=== PATIENT | male | born 2000 | race African-American/Black ===

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

== ENCOUNTER 2019-12-23 08:18 | Emergency (ER) | payer SELFPAY ==
[2019-12-23] MEDS ORDERED: ACETAMINOPHEN 325 MG TAB PO ONE (08:28)
--- NOTE | 2019-12-23 08:37 | Emergency Department Record ---
History of Present Illness - General Chief Complaint: Headache Migraine Stated Complaint: HEADACHE Time Seen by Provider: 12/23/19 08:27 Source: Patient Mode of Arrival: Ambulatory Limitations: No limitations - History of Present Illness Initial Comments: The patient is here due to developing a headache 5 days ago. The pain is mild and over the R side of the back of the head mainly and the onset was gradual. It does wax and wane and is very mild at this time. There has been no visual changes, fever, chills, nausea, vomiting, trauma, neck pain or balance issues. The patient states he has had mild eye strain type of symptoms recently. Due to not having any hx of head pain issues his mother felt he needed to get checked out in the ER. MD Complaint: Headache Onset/Timin -: Days(s) Onset Description: Gradual Location: Occipital Severity: Mild Severity scale (1-10): 3 Quality: Aching Consistency: Intermittent Improves With: Nothing Worsens With: None Context: Other Treatments Prior to Arrival: Acetaminophen Treatment Prior to Arrival Comment:: Tylenol at 0200 - Related Data Home Medications Medication Instructions Recorded Confirmed Last Taken No Home Med [NO HOME MEDS] 12/23/19 12/23/19 Unknown Allergies Allergy/AdvReac Type Severity Reaction Status Date / Time No Known Drug Allergies Allergy Verified 12/23/19 08:27 Travel/Exposure Screening - Travel/Exposure Within Last 30 Days Have you traveled within the last 30 days?: No - Additonal Travel/Exposure Details Have you been exposed to anyone with a communicable illness?: No Review of Systems Constitutional: Denies: Chills, Fever Eyes: Denies: Eye discharge ENT: Denies: Congestion Respiratory: Denies: Cough, Dyspnea Past Medical History - SOCIAL HISTORY Smoking Status: Never smoker Drug Use Detail:: Marijuana - RESPIRATORY Hx Respiratory Disorders: Yes Hx Asthma: Yes (childhood) - CARDIOVASCULAR Hx Cardio Disorders: No - NEURO Hx Neuro Disorders: No - GI Hx GI Disorders: No - Hx Genitourinary Disorders: No - ENDOCRINE Hx Endocrine Disorders: No - MUSCULOSKELETAL Hx Musculoskeletal Disorders: No - PSYCH Hx Psych Problems: No - HEMATOLOGY/ONCOLOGY Hx Hematology/Oncology Disorders: No Family Medical History Any Significant Family History?: No Physical Exam - General General Appearance: Alert, Oriented x3, Cooperative, No acute distress (The patient appears very healthy, is very comfortable and presently texting on his phone.) - Head Head exam: Atraumatic, Normocephalic, Normal inspection - Eye Eye exam: Normal appearance, PERRL, EOMI. negative: Conjunctival injection - ENT ENT exam: Normal exam, Mucous membranes moist, Normal external ear exam, Normal orophraynx, TM's normal bilaterally Throat exam: Normal inspection. negative: Tonsillar erythema, Tonsillar exudate - Neck Neck exam: Normal inspection, Full ROM. negative: Lymphadenopathy, Meningismus (The neck is very supple.), Tenderness - Respiratory Respiratory exam: Normal lung sounds bilaterally. negative: Respiratory distress - Cardiovascular Cardiovascular Exam: Regular rate, Normal rhythm, Normal heart sounds - GI/Abdominal GI/Abdominal exam: Soft, Normal bowel sounds. negative: Tenderness - Extremities Extremities exam: Normal inspection, Full ROM, Normal capillary refill. negative: Tenderness - Back Back exam: Reports: Normal inspection. Denies: Vertebral tenderness - Neurological Neurological exam: Alert, Normal gait, Oriented X3, Other (Neg Drift and [place]omberg.). negative: Abnormal gait, Altered, Motor sensory deficit - Psychiatric Psychiatric exam: negative: Anxious, Depressed - Skin Skin exam: negative: Rash Course Vital Signs 12/23/19 08:21 Temperature 98.0 F Pulse Rate 63 Respiratory 18 Rate Blood Pressure 127/50 Pulse Ox 100 - Reevaluation(s) Reevaluation #1: The patient clearly is nontoxic and in no distress. I did discuss the issues with him and the need for F/U. He clearly has no emergency medical issue at this time. The head pain is mild and pretty much gone now and he does complain of frequent eye strain. I did recommend F/U with his PCP and also an eye doctor for recheck. 12/23/19 08:41 Disposition Disposition: Discharge Clinical Impression: Head ache Qualifiers: Headache type: tension-type Headache chronicity pattern: acute headache Intractability: not intractable Qualified Code(s): G44.209 - Tension-type headache, unspecified, not intractable Disposition: Home, Self-Care Condition: (2) Stable Instructions: Acute Headache (ED) Additional Instructions: Please take Tylenol or Motrin for pain and please see your family doctor for recheck. Also please see an eye doctor to be checked for needing glasses. Please return to the ER for any worsening issues. Forms: Patient Portal Access Time of Disposition: 08:40 Quality - Quality Measures Quality Measures: N/A - Blood Pressure Screening View Details: Yes Does Patient Have Any of the Following: No Blood Pressure Classification: Pre-Hypertensive BP Reading Systolic Measurement: 127 Diastolic Measurement: 50 Screening for High Blood Pressure: < Pre-Hypertensive BP, F/U Documented > [[id number]] Pre-Hypertensive Follow-up Interventions: Referral to alternative/primary care provider.
== END 2019-12-23 08:52 | disposition home or self-care (01) ==
LOC: ER 08:18
DX: G44.209 Tension-type headache, unspecified, not intractable (principal); M54.2 Cervicalgia
CPT/HCPCS: 99282